=== PATIENT | male | born 1965 | race Two or more races ===

== ENCOUNTER 2023-07-09 00:36 | Inpatient (IN) | payer MEDICAID ==
[2023-07-09] VITALS (22 sets, daily range): BP systolic 78–136; BP diastolic 44–70; PULSE 52–77; RESP 10–22; TEMP 97.3–98.7; O2SAT 98–100
[~2023-07-09] VITALS: Ht 165.1 cm; Wt 58.9 kg
[~2023-07-09 00:36] MED LIST: ADAL40KI SQ; BUPR-230 PO; CHOL200013 PO; FLUT16SP10 NAS; LEVO112T5 PO
[2023-07-09] MEDS: HYDROmorphone 1 mg/ml syringe IV ONE (03:29)
[2023-07-09] MEDS: ondansetron/PF 4mg/2ml inj IV ONE (03:29)
[2023-07-09 03:59] LABS: BASOPHILS % (AUTO) 0.5 % (0-1); EOSINOPHILS # (AUTO) 0.2 X10'3 (0-0.9); EOSINOPHILS % (AUTO) 1.8 % (0-6); HEMATOCRIT 32.5 % (42.0-52.0); HEMOGLOBIN 10.9 g/dl (14.0-17.9); LYMPHOCYTES # (AUTO) 1.2 X10'3 (1.1-4.8); LYMPHOCYTES % (AUTO) 12.1 % (21-51); MEAN CORPUSCULAR HGB CONC 33.7 g/dL (33.0-36.5); MEAN CORPUSCULAR VOLUME 101.1 FL (78-98); MEAN PLATELET VOLUME 8.8 FL (7.4-10.4); MONOCYTES # (AUTO) 0.6 X10'3 (0-0.9); MONOCYTES % (AUTO) 6.2 % (2-12); NEUTROPHILS # (AUTO) 7.9 X10'3 (1.8-7.7); NEUTROPHILS % (AUTO) 79.4 % (42-75); PLATELET COUNT 179 X10'3 (140-440); RED BLOOD COUNT 3.21 X10'6 (4.70-6.10); RED CELL DISTRIBUTION WIDTH 14.6 % (11.5-14.5)
[2023-07-09 04:06] LABS: ALBUMIN 3.1 G/DL (3.4-5.0); ANION GAP 8 (8-16); BLOOD UREA NITROGEN 16 MG/DL (7-18); BUN/CREATININE RATIO 12.8 (10.0-20.0); CALCIUM 8.5 MG/DL (8.5-10.1); CHLORIDE 104 MMOL/L (99-107); CREATININE 1.25 MG/DL (0.60-1.10); GLUCOSE 93 MG/DL (70-104); POTASSIUM 3.7 MMOL/L (3.5-5.1); SODIUM 135 MMOL/L (135-145); TOTAL CARBON DIOXIDE 23.5 MMOL/L (24-32); eCRCL 60 ML/MIN; eGFR 60 ML/MIN
[2023-07-09] MEDS: normal saline 1000ml 1,000 ML IV SCH ×2 (04:53→07:23)
[2023-07-09] MEDS ORDERED: magnesium 2GM in 50ml NS 50 ML IV PRN (06:25)
[2023-07-09] MEDS ORDERED: mag hydrox/Alum hydrox/simeth 30ml oral suspension PO PRN (06:25)
[2023-07-09] MEDS ORDERED: HYDROmorphone inj. 0.5 MG/0.5 ML DISP.SYRIN IV PRN (06:25)
[2023-07-09] MEDS ORDERED: potassium Cl 20 mEq SR tablet PO PRN ×2 (06:25)
[2023-07-09] MEDS ORDERED: HYDROmorphone/PF 0.2 MG/ML SYRINGE IV PRN (06:25)
[2023-07-09] MEDS ORDERED: magnesium Cl slow-release 64mg tablet PO PRN (06:25)
[2023-07-09] MEDS ORDERED: magnesium hydroxide 30ml (MOM) UD suspension PO PRN (06:25)
[2023-07-09] MEDS ORDERED: potassium Cl 40MEQ/1/2NS 520ml 520 ML IV PRN (06:25)
[2023-07-09] MEDS ORDERED: magnesium 4gm in 100ml NS 100 ML IV PRN (06:25)
[2023-07-09] MEDS ORDERED: ondansetron/PF 4mg/2ml inj IV PRN ×2 (06:25→13:10)
[2023-07-09] MEDS: HYDROcodone/acetaminophen 5mg/325mg tablet PO PRN (07:39)
[2023-07-09] MEDS: K and/or MAG REPLACEMENT MC SCH (08:00)
[2023-07-09 09:27] LABS: ALANINE AMINOTRANSFERASE 27 U/L (12-78); ALBUMIN/GLOBULIN RATIO 0.8 (1.1-1.5); ALKALINE PHOSPHATASE 57 IU/L (46-116); ASPARTATE AMINO TRANSFERASE 25 U/L (10-37); BILIRUBIN,DIRECT 0.1 MG/DL (0-0.3); BILIRUBIN,TOTAL 0.4 MG/DL (0.1-1.0); CHOL/HDL RATIO 2.1 (0.00-4.99); CHOLESTEROL 196 MG/DL (0-200); FREE T4 (FREE THYROXINE) 1.24 NG/DL (0.73-1.40); HDL CHOLESTEROL 92 MG/DL (35-60); LDL CHOLESTEROL 97 MG/DL (50-100); THYROID STIMULATING HORMONE 3.46 ulU/ml (0.34-4.50); TRIGLYCERIDES 27 MG/DL (20-135)
[2023-07-09] MEDS: heparin, porcine 5000 units/ml vial SQ SCH (10:05)
[2023-07-09] MEDS: docusate sod 100mg capsule PO SCH (10:05)
[2023-07-09 10:28] LABS: BILIRUBIN,URINE NEGATIVE (Neg); CLARITY,URINE CLEAR (Clear); COLOR,URINE YELLOW (Yellow); GLUCOSE, URINE NEGATIVE (Neg); KETONES,URINE NEGATIVE (Neg); LEUKOCYTE ESTERASE ,URINE NEGATIVE (Neg); NITRITES, URINE NEGATIVE (Neg); OCCULT BLOOD,URINE LARGE (Neg); PH,URINE 5.5 (4.8-8.0); PROTEIN,URINE NEGATIVE (Neg); UROBILINOGEN,URINE 0.2 E.U/dL (0.2-1.0)
[2023-07-09 10:33] LABS: UA COLLECTION TYPE NON-SPECIFIED
[2023-07-09 10:34] LABS: SQUAMOUS EPITHELIAL CELL,UR FEW /LPF (FEW)
[2023-07-09 10:35] LABS: BACTERIA,URINE FEW /HPF (Neg); SPERM FEW /HPF (NEGATIVE); WBC,URINE 0-4 /HPF (0-4)
[2023-07-09 10:42] LABS: URINE AMPHETAMINE SCREEN NEGATIVE (Neg); URINE BARBITUATE SCREEN NEGATIVE (Neg); URINE BENZODIAZEPINES SCREEN NEGATIVE (Neg); URINE CANNABINOID SCREEN NEGATIVE (Neg); URINE COCAINE SCREEN NEGATIVE (Neg); URINE METHADONE SCREEN NEGATIVE (Neg); URINE PHENCYCLIDINE SCREEN NEGATIVE (Neg)
[2023-07-09] MEDS: BUPIVAcaine 2.5mg/ml inj 50ml vial (contains preservative) ONE (11:40)
[2023-07-09 11:50] LABS: APTT 28 SECONDS (22-32); INR 1.1 INR; PROTHROMBIN TIME 11.6 SECONDS (9.0-12.0)
[2023-07-09] MEDS ORDERED: fentaNYL/PF 50MCG/1 ML 2ML syringe ONE (12:00)
[2023-07-09] MEDS ORDERED: midazolam 1 mg/ML 2ml injection ONE (12:00)
[2023-07-09] MEDS ORDERED: propofol inj 20 ML IV ONE (12:01)
[2023-07-09] MEDS ORDERED: sevoflurane 250ml liquid IH ONE (12:04)
[2023-07-09] MEDS ORDERED: ceFAZolin 1000mg inj ONE ×2 (12:19)
[2023-07-09] MEDS ORDERED: morphine 4 MG/ML inj SYRINge IV PRN (13:10)
[2023-07-09] MEDS ORDERED: meperidine/PF 25mg/ml syringe IV PRN (13:10)
[2023-07-09] MEDS ORDERED: morphine 2 MG/ML inj. syringe IV PRN (13:10)
[2023-07-09] MEDS: ringers solution, lacted 1,000 ML IV SCH (13:14)
[2023-07-09] MEDS: acetaminophen 1,000mg/100ml IV 100 ML IV ONE (13:28)
[2023-07-09] MEDS: meperidine/PF 25mg/ml syringe IV PRN (14:00)
[2023-07-09] MEDS ORDERED: SYN0.088T PO (15:28)
[2023-07-09] MEDS ORDERED: FOLI1TAB27 PO (15:31)
[2023-07-10] MEDS: HYDROcodone/acetaminophen 10/325mg tab PO PRN (00:41)
[2023-07-10] MEDS: acetaminophen 325mg tablet PO PRN (01:23)
[2023-07-10 02:00] VITALS: BP 102/48; PULSE 85; RESP 16; TEMP 99.9; O2SAT 99
[2023-07-10 06:00] VITALS: BP 90/48; PULSE 80; RESP 18; TEMP 98.2; O2SAT 94
[2023-07-10 07:11] LABS: ALBUMIN 2.4 G/DL (3.4-5.0); ANION GAP 5 (8-16); BLOOD UREA NITROGEN 15 MG/DL (7-18); BUN/CREATININE RATIO 11.9 (10.0-20.0); CALCIUM 7.9 MG/DL (8.5-10.1); CHLORIDE 107 MMOL/L (99-107); CREATININE 1.26 MG/DL (0.60-1.10); GLUCOSE 96 MG/DL (70-104); POTASSIUM 4.2 MMOL/L (3.5-5.1); SODIUM 137 MMOL/L (135-145); TOTAL CARBON DIOXIDE 25.3 MMOL/L (24-32); eCRCL 55 ML/MIN; eGFR 59 ML/MIN
[2023-07-10 07:12] LABS: BASOPHILS # (AUTO) 0.1 X10'3 (0-0.2); EOSINOPHILS # (AUTO) 0.3 X10'3 (0-0.9); EOSINOPHILS % (AUTO) 4.3 % (0-6); HEMATOCRIT 27.9 % (42.0-52.0); HEMOGLOBIN 9.4 g/dl (14.0-17.9); LYMPHOCYTES # (AUTO) 1.2 X10'3 (1.1-4.8); LYMPHOCYTES % (AUTO) 19.4 % (21-51); MEAN CORPUSCULAR HEMOGLOBIN 34.6 PG (27.0-31.0); MEAN CORPUSCULAR HGB CONC 33.9 g/dL (33.0-36.5); MEAN PLATELET VOLUME 9.3 FL (7.4-10.4); MONOCYTES # (AUTO) 0.5 X10'3 (0-0.9); MONOCYTES % (AUTO) 8.6 % (2-12); NEUTROPHILS # (AUTO) 4.1 X10'3 (1.8-7.7); NEUTROPHILS % (AUTO) 66.7 % (42-75); PLATELET COUNT 135 X10'3 (140-440); RED BLOOD COUNT 2.73 X10'6 (4.70-6.10); WHITE BLOOD COUNT 6.1 X10'3 (4.5-11.0)
[2023-07-10 08:00] VITALS: RESP 16; O2SAT 94
[2023-07-10] MEDS ORDERED: LEVO100T9 PO (09:46)
[2023-07-10] MEDS ORDERED: METH2.5T55 PO (09:46)
[2023-07-10 10:00] VITALS: BP 104/61; PULSE 82; RESP 16; TEMP 98.7; O2SAT 96
[2023-07-10] MEDS: levoTHYROXINE 88mcg tablet PO SCH (12:35)
[2023-07-10 14:16] LABS: % IRON SATURATION 22 % (11-46); IRON 54 UG/DL (53-167); TOTAL IRON BINDING CAPACITY 244 UG/DL (259-388)
[2023-07-10 18:44] VITALS: RESP 18; O2SAT 95
[2023-07-10] MEDS: buPROPion SR 150mg tablet PO SCH (20:00)
[2023-07-10 22:00] VITALS: BP 106/65; PULSE 88; RESP 16; TEMP 97.9; O2SAT 96
[2023-07-11 06:00] VITALS: BP 90/51; PULSE 80; RESP 16; TEMP 99.3; O2SAT 98
[2023-07-11 07:12] LABS: BASOPHILS # (AUTO) 0.1 X10'3 (0-0.2); BASOPHILS % (AUTO) 0.9 % (0-1); EOSINOPHILS # (AUTO) 0.4 X10'3 (0-0.9); EOSINOPHILS % (AUTO) 6.3 % (0-6); HEMATOCRIT 27.5 % (42.0-52.0); HEMOGLOBIN 9.2 g/dl (14.0-17.9); LYMPHOCYTES # (AUTO) 0.9 X10'3 (1.1-4.8); MEAN CORPUSCULAR HGB CONC 33.4 g/dL (33.0-36.5); MEAN CORPUSCULAR VOLUME 101.8 FL (78-98); MEAN PLATELET VOLUME 9.2 FL (7.4-10.4); MONOCYTES # (AUTO) 0.6 X10'3 (0-0.9); MONOCYTES % (AUTO) 9.8 % (2-12); NEUTROPHILS # (AUTO) 4.3 X10'3 (1.8-7.7); PLATELET COUNT 131 X10'3 (140-440); RED CELL DISTRIBUTION WIDTH 13.9 % (11.5-14.5); WHITE BLOOD COUNT 6.3 X10'3 (4.5-11.0)
[2023-07-11 07:13] LABS: ALBUMIN 2.4 G/DL (3.4-5.0); ANION GAP 8 (8-16); BLOOD UREA NITROGEN 10 MG/DL (7-18); BUN/CREATININE RATIO 8.5 (10.0-20.0); CALCIUM 7.7 MG/DL (8.5-10.1); CHLORIDE 106 MMOL/L (99-107); CREATININE 1.18 MG/DL (0.60-1.10); GLUCOSE 87 MG/DL (70-104); POTASSIUM 3.7 MMOL/L (3.5-5.1); SODIUM 138 MMOL/L (135-145); eCRCL 58 ML/MIN; eGFR 64 ML/MIN
[2023-07-11] MEDS: folic acid 1mg tablet PO SCH (07:49)
[2023-07-11] MEDS: cholecalciferol (vitamin D3) 1,000 unit (25mcg) tablet PO SCH (07:49)
[2023-07-11] MEDS ORDERED: BUPR150T8 PO (08:53)
[2023-07-11 10:43] VITALS: BP 97/60; PULSE 84; RESP 14; TEMP 98.4; O2SAT 96
[2023-07-11 19:33] VITALS: RESP 18
[2023-07-11 22:00] VITALS: BP 108/74; PULSE 82; RESP 18; TEMP 98.7; O2SAT 98
[2023-07-12 06:00] VITALS: BP 102/62; PULSE 69; RESP 16; TEMP 98.1; O2SAT 98
[2023-07-12] MEDS: buPROPion SR 150mg tablet PO SCH (07:39)
[2023-07-12 07:52] LABS: BASOPHILS # (AUTO) 0.1 X10'3 (0-0.2); BASOPHILS % (AUTO) 0.9 % (0-1); EOSINOPHILS # (AUTO) 0.4 X10'3 (0-0.9); EOSINOPHILS % (AUTO) 6.6 % (0-6); HEMATOCRIT 31.2 % (42.0-52.0); HEMOGLOBIN 10.4 g/dl (14.0-17.9); LYMPHOCYTES # (AUTO) 0.9 X10'3 (1.1-4.8); LYMPHOCYTES % (AUTO) 14.4 % (21-51); MEAN CORPUSCULAR HGB CONC 33.3 g/dL (33.0-36.5); MEAN PLATELET VOLUME 8.9 FL (7.4-10.4); MONOCYTES # (AUTO) 0.6 X10'3 (0-0.9); MONOCYTES % (AUTO) 10.1 % (2-12); NEUTROPHILS # (AUTO) 4.1 X10'3 (1.8-7.7); PLATELET COUNT 166 X10'3 (140-440); RED BLOOD COUNT 3.06 X10'6 (4.70-6.10); RED CELL DISTRIBUTION WIDTH 14.2 % (11.5-14.5); WHITE BLOOD COUNT 6.1 X10'3 (4.5-11.0)
[2023-07-12 08:27] LABS: ALBUMIN 2.8 G/DL (3.4-5.0); ANION GAP 9 (8-16); BLOOD UREA NITROGEN 12 MG/DL (7-18); BUN/CREATININE RATIO 9.2 (10.0-20.0); CALCIUM 8.5 MG/DL (8.5-10.1); CHLORIDE 102 MMOL/L (99-107); GLUCOSE 93 MG/DL (70-104); POTASSIUM 3.9 MMOL/L (3.5-5.1); SODIUM 137 MMOL/L (135-145); TOTAL CARBON DIOXIDE 26.3 MMOL/L (24-32); eCRCL 53 ML/MIN; eGFR 57 ML/MIN
[2023-07-12 10:00] VITALS: BP 118/76; PULSE 97; RESP 18; TEMP 98.1; O2SAT 99
[2023-07-12 18:00] VITALS: BP 109/75; PULSE 105; RESP 18; TEMP 98.8; O2SAT 98
[2023-07-12 20:30] VITALS: RESP 16; O2SAT 99
[2023-07-12 22:00] VITALS: BP 107/67; PULSE 89; RESP 16; TEMP 98.2; O2SAT 99
[2023-07-13 06:30] VITALS: BP 98/60; PULSE 61; RESP 16; TEMP 98.5; O2SAT 99
[2023-07-13 07:54] LABS: BASOPHILS % (AUTO) 0.9 % (0-1); EOSINOPHILS # (AUTO) 0.4 X10'3 (0-0.9); EOSINOPHILS % (AUTO) 8.3 % (0-6); HEMATOCRIT 28.6 % (42.0-52.0); HEMOGLOBIN 9.6 g/dl (14.0-17.9); LYMPHOCYTES % (AUTO) 19.8 % (21-51); MEAN CORPUSCULAR HEMOGLOBIN 34.2 PG (27.0-31.0); MEAN CORPUSCULAR HGB CONC 33.6 g/dL (33.0-36.5); MEAN CORPUSCULAR VOLUME 101.7 FL (78-98); MEAN PLATELET VOLUME 8.4 FL (7.4-10.4); MONOCYTES # (AUTO) 0.6 X10'3 (0-0.9); MONOCYTES % (AUTO) 12.1 % (2-12); NEUTROPHILS # (AUTO) 2.9 X10'3 (1.8-7.7); NEUTROPHILS % (AUTO) 58.9 % (42-75); PLATELET COUNT 168 X10'3 (140-440); RED BLOOD COUNT 2.81 X10'6 (4.70-6.10); RED CELL DISTRIBUTION WIDTH 14.2 % (11.5-14.5); WHITE BLOOD COUNT 4.9 X10'3 (4.5-11.0)
[2023-07-13 08:00] VITALS: RESP 16; O2SAT 98
[2023-07-13 08:23] LABS: ALBUMIN 2.5 G/DL (3.4-5.0); ANION GAP 8 (8-16); BLOOD UREA NITROGEN 10 MG/DL (7-18); BUN/CREATININE RATIO 8.7 (10.0-20.0); CALCIUM 8.7 MG/DL (8.5-10.1); CHLORIDE 104 MMOL/L (99-107); CREATININE 1.15 MG/DL (0.60-1.10); GLUCOSE 90 MG/DL (70-104); POTASSIUM 3.9 MMOL/L (3.5-5.1); SODIUM 139 MMOL/L (135-145); TOTAL CARBON DIOXIDE 27.4 MMOL/L (24-32); eCRCL 60 ML/MIN; eGFR 66 ML/MIN
[2023-07-13 10:30] VITALS: BP 109/70; PULSE 91; RESP 16; TEMP 97.9; O2SAT 98
[2023-07-13 18:00] VITALS: BP 121/66; PULSE 93; RESP 15; TEMP 99.1; O2SAT 99
[2023-07-13] MEDS: mupirocin 2% ointment 22GM TP SCH (19:41)
[2023-07-13 20:30] VITALS: RESP 18; O2SAT 97
[2023-07-13 22:00] VITALS: BP 116/70; PULSE 91; RESP 16; TEMP 97.4; O2SAT 100
[2023-07-14 06:00] VITALS: BP 106/63; PULSE 73; RESP 14; TEMP 97.4; O2SAT 100
[2023-07-14 06:17] LABS: BASOPHILS # (AUTO) 0.1 X10'3 (0-0.2); BASOPHILS % (AUTO) 1.3 % (0-1); EOSINOPHILS # (AUTO) 0.4 X10'3 (0-0.9); EOSINOPHILS % (AUTO) 8.2 % (0-6); HEMATOCRIT 28.1 % (42.0-52.0); HEMOGLOBIN 9.4 g/dl (14.0-17.9); LYMPHOCYTES # (AUTO) 1.5 X10'3 (1.1-4.8); LYMPHOCYTES % (AUTO) 33.5 % (21-51); MEAN CORPUSCULAR HEMOGLOBIN 34.1 PG (27.0-31.0); MEAN CORPUSCULAR HGB CONC 33.3 g/dL (33.0-36.5); MEAN CORPUSCULAR VOLUME 102.2 FL (78-98); MEAN PLATELET VOLUME 8.1 FL (7.4-10.4); MONOCYTES # (AUTO) 0.6 X10'3 (0-0.9); MONOCYTES % (AUTO) 12.4 % (2-12); NEUTROPHILS % (AUTO) 44.6 % (42-75); PLATELET COUNT 191 X10'3 (140-440); RED BLOOD COUNT 2.75 X10'6 (4.70-6.10); RED CELL DISTRIBUTION WIDTH 14.1 % (11.5-14.5); WHITE BLOOD COUNT 4.5 X10'3 (4.5-11.0)
[2023-07-14 06:27] LABS: ALBUMIN 2.5 G/DL (3.4-5.0); ANION GAP 5 (8-16); BLOOD UREA NITROGEN 10 MG/DL (7-18); CALCIUM 8.7 MG/DL (8.5-10.1); CHLORIDE 104 MMOL/L (99-107); CREATININE 1.11 MG/DL (0.60-1.10); GLUCOSE 91 MG/DL (70-104); SODIUM 141 MMOL/L (135-145); TOTAL CARBON DIOXIDE 31.6 MMOL/L (24-32); eCRCL 62 ML/MIN; eGFR 69 ML/MIN
[2023-07-14 08:00] VITALS: RESP 14; O2SAT 100
[2023-07-14 10:00] VITALS: BP 111/68; PULSE 84; RESP 16; TEMP 98.4; O2SAT 99
[2023-07-14 18:00] VITALS: BP 108/63; PULSE 82; RESP 15; TEMP 98.8; O2SAT 100
[2023-07-14 22:00] VITALS: BP 124/65; PULSE 91; RESP 16; TEMP 97.9; O2SAT 97
[2023-07-15 06:00] VITALS: BP 93/54; PULSE 76; RESP 18; TEMP 98.7; O2SAT 97
[2023-07-15 08:00] VITALS: RESP 18; O2SAT 97
[2023-07-15 10:00] VITALS: BP 109/55; PULSE 91; RESP 14; TEMP 98.7; O2SAT 97
[2023-07-15 18:00] VITALS: BP 116/67; PULSE 84; RESP 18; TEMP 98.1; O2SAT 99
== END 2023-07-15 18:57 | DRG 308 ==
LOC: ER 00:37 → ED HOLD 06:36 → ORTHO 4S 15:19
PROVIDERS: ADMIT Surgery Surgical Critical Care; ATTEND Internal Medicine
PROC: 0QS604Z Reposition Right Upper Femur with Internal Fixation Device, Open Approach (ICD-10-PCS; principal; 2023-07-09 12:04)
DX: S72.144A Nondisplaced intertrochanteric fracture of right femur, initial encounter for closed fracture (principal); D50.9 Iron deficiency anemia, unspecified; E06.3 Autoimmune thyroiditis; J45.909 Unspecified asthma, uncomplicated; W18.39XA Other fall on same level, initial encounter; F32.A Depression, unspecified; K50.90 Crohn's disease, unspecified, without complications; N18.9 Chronic kidney disease, unspecified; Y93.89 Activity, other specified; Y92.89 Other specified places as the place of occurrence of the external cause; Y99.8 Other external cause status
CPT/HCPCS: 36415; 70450; 73501; 73502; 73700; 76000; 80048; 80061; 80076; 80305; 81001; 82607; 82746; 83036; 83540; 83550; 84439; 84443; 85025; 85610; 85730; 96374; 96375; 97110; 97116; 97161; 97530; 99285; A4421; A4615; A4618; A4649; A6212; A6250; A6258; A6449; A7000; C1713; G0378; J0131; J0690; J1170; J1644; J2175; J2250; J2405; J2704; J3010; J3490; J7030; J7120